=== PATIENT | male | born 1950 | race Caucasian/White ===

== ENCOUNTER 2017-03-12 14:39 | Inpatient (IN) ==
[2017-03-12] MEDS ORDERED: *HR* FentaNYL (PF) 250 MCG/5 ML VIAL ONE (15:11)
[2017-03-12] MEDS ORDERED: Nitroglycerin 1,000 MCG/10 ML VIAL IV ONE ×2 (15:11→16:04)
[2017-03-12] MEDS ORDERED: Heparin 1,000 UNITS/500 mL NS 500 ML ONE (15:11)
[2017-03-12] MEDS ORDERED: *HR* Midazolam HCl 5 MG/5 ML VIAL IVP ONE (15:11)
[2017-03-12] MEDS ORDERED: 0.9 % Sodium Chloride 1,000 ML ONE ×2 (15:11→15:37)
[2017-03-12] MEDS ORDERED: *HR* Heparin 10,000 UNIT/10 ML VIAL ONE (15:11)
[2017-03-12] MEDS ORDERED: *HR* Bivalirudin 250 MG VIAL IVC ONE (15:12)
[2017-03-12] MEDS ORDERED: Amiodarone Premix 0 MG/0 ML BAG IVPB ONE (15:47)
[2017-03-12] MEDS ORDERED: Ondansetron 4 MG/2 ML VIAL IVP PRN (16:35)
[2017-03-12] MEDS ORDERED: Nitroglycerin 0.4 MG TAB.SUBL SL PRN (16:35)
--- NOTE | 2017-03-12 16:41 | Cardiology History & Physical ---
Date of Encounter: 03/12/17 Time of Encounter: 16:40 Assessment and Plan (1) ST elevation myocardial infarction (STEMI) Current Visit: No Status: Acute Per Cardiology: Presented with inferior posterior STEMI. Troponin negative at [facility]. Taken from [facility] to [facility] for emergent revascularization by Dr. Augustina Mckenzie. Patient underwent drug-eluting stent to distal RCA. Currently chest pain-free. Has remaining LAD 70% stenosis with recommendations for staged PCI in outpatient setting. Echo pending. Anticipated LOS 2-3 days. Qualifiers: Involved coronary artery: right coronary artery Qualified Code(s): I21.11 - ST elevation (STEMI) myocardial infarction involving right coronary artery History of Present Illness Chief complaint: CP HPI: Mr. Lr is a 67 year old male with a relevant past history of hyperlipidemia, hypertension, and mitral valve repair in 2004 at [facility]. Reports dad of a myocardial infarction. Denies any smoking history. Denies any known history of CAD. Patient reports he was riding his bike developed midsternal epigastric chest pressure and drove himself to [facility]. He reports he normally bikes about 120 miles per week until about one to 2 months ago. She reports significant decline in his energy levels with increased fatigue and decreased exercise tolerance. He reports biked about 60 miles last week. Biked about 15 miles today before CP started. He denies any short of breath or dyspnea on exertion. Denies any palpitations, dizziness, syncope. Denies any bleeding or blood loss. Reports lisinopril medication recently discontinued due to dry cough by PCP. Past Med Surg Social Fam HX - Past Medical History Source: patient, old records reviewed Medical history: cancer, hyperlipidemia, hypertension, valvular heart disease ( Mitral valve repair at [facility] in 2004) - Social History Smoking Status: Never smoker Smokeless Tobacco Status: No Alcohol use: occasionally Drug use: none Medications and Allergies Aspirin 81 mg PO DAILY 03/12/17 [History] Doxepin HCl 100 mg PO HS 03/12/17 [History] LORazepam [Ativan] 0.5 mg PO TID PRN 03/12/17 [History] Allergies No Known Allergies Allergy (Verified 03/12/17 14:11) All Systems Review: A 10-system review of systems was performed and is negative for pertinent findings except as documented above in the HPI. - Constitutional Constitutional: fatigue - Cardiovascular Cardiovascular: as per HPI, chest pain with exertion Physical Examination Pending General: Conversant, No Apparent Distress HEENT: Atraumatic, Normocephaly, Mucus Membranes Moist Neck: No JVD, Normal carotid pulses Cardiac: Reg Rate and Rhythm, Normal S1 and S2, No Murmur Lungs: Normal Breath Sounds, No Wheeze, Rales, Rhonchi Neuro: Alert and responsive, No focal deficits noted Abdomen: Soft, Non-Tender Skin: No rashes noted on visualized skin Musculoskeletal: No Chest Wall Tenderness Extremities: No Clubbing, No Cyanosis, No Edema, Normal Pulses Results Laboratory Tests 02/05/17 03/06/17 03/12/17 10:33 13:27 14:45 WBC 7.4 Hgb 14.5 Hct 40.9 Plt Count 230 INR Potassium Creatinine Est GFR (Non-Af Amer) AST 22 ALT 19 Troponin I LDL Cholesterol, Calc 86 TSH 1.802 03/12/17 03/12/17 03/12/17 14:45 14:45 14:45 WBC Hgb Hct Plt Count INR 1.1 Potassium 3.9 Creatinine 1.00 Est GFR (Non-Af Amer) > 60 AST ALT Troponin I 0.01 LDL Cholesterol, Calc TSH - Imaging and Cardiology Cardiac cath: other (perfromed per Dr. Augustina Mckenzie)
--- NOTE | 2017-03-12 17:02 | Invasive Diagnostic Lab Proc ---
Name: Iban Lr Date of Study: 03/12/2017 Date: 1950 Ht: 68.9in Medical Record#: [id number] Age: 67 Wt: 175.05lb Gender: Male BSA: 1.95 Order #: [id number] BMI: 25.93 Physicians Procedure Physician: Vivi Mckenzie MD, [facility] Referring MD: Referring MD: Staff Name Position Time In Lex Hare RN Line Installer Repairer 03:22 PM Denia Jeong RN Monitor 03:23 PM Malika Tracy RT Scrub 03:23 PM Macarena Yousif RT (R) 03:23 PM Indications Indication STEMI Procedures Performed Procedure PRQ CARD REVASC NH 1 VSL L HRT ARTERY/VENTRICLE ANGIO Pre-Procedure Checklist Informed consent is complete signed and on chart. H\\T\\P is on chart. ID band is on and ID verified with patient. Patient NPO for procedure The procedure was described for the patient and questions were answered. Blood Pressure: 144/103 ECG is on chart. Rhythm: Sinus Tachycardia Plan of Care Patient will tolerate the procedure without complications. Adequate level of comfort will be maintained. Hemodynamics will remain stable Patient will recover from procedure without complications. Respiratory function will be maintained. Cardiac rhythm will remain stable. Patient temperature will be maintained. Patient and/or family have verbalized understanding of the procedure. Patient Education Chief Complaint/Reason for Test: Cardiac Cath Developmental Category: Geriatric (65+ years) Developmentally Appropriate for Age: Yes Learning Barriers: None Education Needs: Procedure Education Method: Verbal Information Taught: Cardiac Cath Educational Evaluation: Able to repeat information Intravenous Access Time IV Size Location DC'd Fluid/Drip Rate Units RN 03:15 PM 18g 1 1/4" Patent On Arrival Rt Antecubital 0.9NaCl 25 ml/hr Lex Hare RN 03:15 PM 18g 1 1/4" Patent On Arrival Lt Antecubital 0.9NaCl 25 ml/hr Lex Hare RN Allergies No Known Allergies Vital Signs Time BP (mmHg) HR (bpm) O2 Sat. RR (bpm) LOC 03:24 PM 144 / 103 115 97 % 15 5 = Fully awake and oriented or at pre-proc level 03:24 PM / % 4 = Oriented but drowsy 03:39 PM / % 4 = Oriented but drowsy 03:55 PM / % 4 = Oriented but drowsy 04:10 PM / % 5 = Fully awake and oriented or at pre-proc level 03:57 PM 139 / 89 83 93 % 3 04:02 PM 127 / 82 89 94 % 2 04:07 PM 134 / 99 71 97 % 7 04:12 PM 124 / 76 82 94 % 3 04:17 PM 127 / 88 67 96 % 4 03:17 PM 144 / 103 115 97 % 15 03:22 PM 157 / 92 74 94 % 15 03:27 PM 155 / 108 78 93 % 21 03:32 PM 156 / 100 76 93 % 17 03:37 PM 155 / 106 71 95 % 16 03:42 PM 143 / 96 83 95 % 15 03:47 PM 136 / 92 88 95 % 20 03:52 PM 128 / 74 74 92 % 10 Procedural Medications Time Medication Dose Units Method Given By 03:23 PM Oxygen 2 L/min nasal cannula Lex Hare RN 03:23 PM Versed 2 mg Intravenous Lex Hare RN 03:24 PM Fentanyl 50 mcg Intravenous Lex Hare RN 03:24 PM Lidocaine 2% 17 ml Subcutaneous Vivi Mckenzie MD, FACC 03:34 PM Heparin 3000 units Intravenous Lex Hare RN 03:46 PM Nitroglycerin 200 mcg Intracoronary Vivi Mckenzie MD, FACC 03:49 PM Nitroglycerin 200 mcg Intracoronary Vivi Mckenzie MD, FACC 03:49 PM Versed 1 mg Intravenous Lex Hare RN 03:49 PM Fentanyl 25 mcg Intravenous Lex Hare RN 03:57 PM Nitroglycerin 200 mcg Intracshahidary Vivi Mckenzie MD, FACC 04:09 PM Nitroglycerin 200 mcg Intracoronary Vivi Mckenzie MD, FACC 04:10 PM Nitroglycerin 200 mcg Intracoronary Vivi Mckenzie MD, FACC 04:15 PM Reopro Bolus: 9.9 ml Intravenous Lex Hare RN ASA Classification: Emergent Procedure: ASA score is assumed Komal Score Preprocedure Postprocedure Activity 2- Moves 4 extremities sustained head lift Activity 2- Moves 4 extremities sustained head lift Circulation 2- SBP +/= 20 points of pre-anesthetic level Circulation 2- SBP +/= 20 points of pre-anesthetic level Consciousness 2- Awake and alert oriented x 3 Consciousness 2- Awake and alert oriented x 3 O2 Saturation 2- Able to maintain O2 satruation of 92% on room air O2 Saturation 2- Able to maintain O2 satruation of 92% on room air Respiratory 2- Able to deep breathe and cough well Respiratory 2- Able to deep breathe and cough well Total Score 10 Total Score 10 Contrast Agent: Isovue Diagnostic Contrast: 132 ml Total Contrast: 132 ml Fluoro Dose: 1604 mGy Activated Clotting Time Time Seconds to Clot 03:34 PM 190 03:50 PM 308 04:12 PM 247 Procedure Log Time Note Enter By 03:13 PM Physician arrived 15:13 [facility] 03:13 PM Meet and tere completed [facility] 03:13 PM Sign in performed according to hospital policy. [facility] 03:13 PM Procedure start 15:13 [facility] 03:13 PM Pt arrived to propagator laborer 2 at 15:13 [facility] 03:17 PM CathStat 03:17 PM Case Start 03:17 PM Vitals capture started with the following parameters, Patient=Adult, Interval=5 min, Initial Lfylosvf=933 mmHg, Deflation Rate=5 mmHg, Cuff placed on Right Arm 03:17 PM DD=148 bpm, EXBZ=544/103 mmhg, SpO2=97.0 %, Resp=15 B/min, Comment=Afib/flutter 03:22 PM HR=74 bpm, LMHO=320/92 mmhg, SpO2=94.0 %, Resp=15 B/min, Comment=Afib/flutter 03:23 PM Lex Hare RN Position: Line Installer Repairer [facility]: 15:22 [facility] PM Denia Jeong RN Position: Monitor [facility] in: 15:23 [facility] 03:23 PM Malika Tracy RT Position: Scrub Time in: 15:23 [facility] 03:23 PM Patient charges- Angio tray pack, Navilyst 3mm J, Pulse Oximetry and ACIST tubing and transducer [facility] 03:23 PM Case Delayed No [facility] 03:23 PM Hair removed from procedure site in procedure lab using clippers. Bilateral groin prepped with Chloraprep by Macarena Yousif RT (R), safety strap applied then patient was draped. Skin intact. [facility] 03:23 PM Macarena Yousif RT (R) Position: Time in: 15:23 [facility] PM Time: 15:23 Oxygen on at 2 L/min per nasal cannula by Lex Hare RN 03: PM Time: 15:23 Versed 2 mg Intravenous Given by Lex Hare RN 03: PM Time: 15:24 Fentanyl 50 mcg Intravenous Given by Lex Hare RN : PM Pressure channel 1 zeroed. 03:24 PM Time: 15:24 Patient comfortable and pain free: Yes [facility] 03: PM Time: 15:24LOC: 5 = Fully awake and oriented or at pre-proc level [facility] 03: PM Time out performed according to hospital policy [facility] 03: PM Time: 15:24 17 ml Lidocaine 2% to right groin Subcutaneous Given by Vivi Mckenzie MD, [facility] 03:25 PM Access obtained by percutaneous puncture. 6Fr 10cm Terumo [place] sheath placed in right Femoral artery. [id number] [facility] 03:25 PM 5Fr FL 4 catheter inserted over the wire [facility] 03:25 PM LCA angiography performed in multiple views. [facility] 03:25 PM Recorded Pressure: Ao, HR=77, Condition=Condition 1 (Aorta) Ao 139/98/119 03:26 PM Catheter removed [facility] 03:27 PM HR=78 bpm, KQSO=017/108 mmhg, SpO2=93.0 %, Resp=21 B/min, Comment=Afib/flutter 03:27 PM PCI Status Emergency [facility] 03:28 PM 6Fr JR 4 Kelford Bright-Tip guide catheter was used to cannulate the PCI vessel successfully. reused? No [facility] 03:32 PM Recorded Pressure: Ao, HR=73, Condition=Condition 1 (Aorta) Ao 154/92/122 03:32 PM HR=76 bpm, XGLE=259/100 mmhg, SpO2=93.0 %, Resp=17 B/min, Comment=Afib/flutter 03:33 PM RCA angiography performed in multiple views. [facility] 03:34 PM Guide catheter removed intact. [facility] 03:34 PM At 15:34 the ACT was 190 seconds. [facility] 03:34 PM Time: 15:34 Heparin 3000 units Intravenous Given by Lex Hare RN lp[facility]ana 03:35 PM 6Fr IM Runway guide catheter was used to cannulate the PCI vessel successfully. reused? No [facility] 03:35 PM .014 Prowater 180cm guide wire across target lesion- successful. reused? No [facility] 03:35 PM Inflation device was opened. [facility] 03:36 PM 2.5 mm x 15 mm Emerge Monorail balloon across target lesion- successful. reused? No [facility] 03:36 PM Recorded Pressure: Ao, HR=77, Condition=Condition 1 (Aorta) Ao 157/99/126 03:37 PM Balloon inflated @ 10 ga for 20 seconds [facility] 03:37 PM HR=71 bpm, NMSK=273/106 mmhg, SpO2=95.0 %, Resp=16 B/min, Comment=Afib/flutter 03:38 PM Recorded Pressure: Ao, HR=95, Condition=Condition 1 (Aorta) Ao 134/103/119 03:39 PM Time: 15:24LOC: 4 = Oriented but drowsy [facility] 03:40 PM Time: 15:24 Patient comfortable and pain free: Yes [facility] 03:40 PM .014 PT Graphix 182cm guide wire across target lesion- successful. reused? No [facility] 03:41 PM Recorded Pressure: Ao, HR=74, Condition=Condition 1 (Aorta) Ao 124/79/99 03:41 PM 2.5 x 15 balloon reinserted over the PT Graphix wire [facility] 03:42 PM Balloon inflated @ 10 ga for 20 seconds [facility] 03:42 PM HR=83 bpm, ZCCK=674/96 mmhg, SpO2=95.0 %, Resp=15 B/min, Comment=Afib/flutter 03:42 PM Balloon inflated @ 10 ga for 20 seconds [facility] 03:43 PM Balloon inflated @ 6 ga for 24 seconds [facility] 03:44 PM Recorded Pressure: Ao, HR=71, Condition=Condition 1 (Aorta) Ao 137/92/116 03:44 PM Balloon inflated @ 6 ga for 20 seconds [facility] 03:45 PM Balloon catheter removed intact. [facility] 03:45 PM Recorded Pressure: Ao, CU=982, Condition=Condition 1 (Aorta) Ao 144/100/122 03:46 PM Time: 15:46 Nitroglycerin 200 mcg Intracoronary Given by Vivi Mckenzie MD, [facility] 03:46 PM Reperfusion rhythms noted [facility] 03:47 PM HR=88 bpm, BQVR=406/92 mmhg, SpO2=95.0 %, Resp=20 B/min, Comment=reperfusion rhythm 03:49 PM Time: 15:49 Nitroglycerin 200 mcg Intracoronary Given by Vivi Mckenzie MD, [facility] 03:49 PM Time: 15:49 Versed 1 mg Intravenous Given by Lex Hare RN [facility] 03:49 PM Time: 15:49 Fentanyl 25 mcg Intravenous Given by Lex Hare RN [facility] 03:50 PM Recorded Pressure: Ao, HR=72, Condition=Condition 1 (Aorta) Ao 125/81/101 03:50 PM At 15:50 the ACT was 308 seconds. [facility] 03:52 PM HR=74 bpm, WRRM=947/74 mmhg, SpO2=92.0 %, Resp=10 B/min, Comment=Afib/flutter 03:55 PM Time: 15:40 Patient comfortable and pain free: Yes [facility] 03:55 PM Time: 15:39LOC: 4 = Oriented but drowsy [facility] 03:57 PM HR=83 bpm, YODE=831/89 mmhg, SpO2=93.0 %, Resp=3 B/min, Comment=Afib/flutter 03:58 PM Time: 15:57 Nitroglycerin 200 mcg Intracoronary Given by Vivi Mckenzie MD, [facility] 03:58 PM Recorded Pressure: Ao, HR=90, Condition=Condition 1 (Aorta) Ao 115/79/97 04:01 PM Recorded Pressure: Ao, HR=72, Condition=Condition 1 (Aorta) Ao 125/83/102 04:02 PM HR=89 bpm, KVSA=532/82 mmhg, SpO2=94.0 %, Resp=2 B/min, Comment=Afib/flutter 04:03 PM 3.0mm x 38mm Synergy drug-eluting stent across target lesion- successful [facility][id number] [facility] 04:06 PM Stent deployed @ 12 ga for 30 seconds [facility] 04:07 PM Stent balloon reinflated @ 16 ga for 20 seconds [facility] 04:07 PM HR=71 bpm, UOAQ=459/99 mmhg, SpO2=97.0 %, Resp=7 B/min, Comment=Afib/flutter 04:08 PM Guide wire removed intact. [facility] 04:08 PM Stent delivery system removed intact. [facility] 04:09 PM Time: 16:09 Nitroglycerin 200 mcg Intracoronary Given by Vivi Mckenzie MD, [facility] 04:09 PM Recorded Pressure: Ao, HR=82, Condition=Condition 1 (Aorta) Ao 147/99/120 04:10 PM Time: 15:55LOC: 4 = Oriented but drowsy [facility] 04:10 PM Time: 15:55 Patient comfortable and pain free: Yes [facility] 04:10 PM Time: 16:10 Nitroglycerin 200 mcg Intracoronary Given by Vivi Mckenzie MD, [facility] 04:12 PM At 16:12 the ACT was 247 seconds. [facility] 04:12 PM HR=82 bpm, RYJX=570/76 mmhg, SpO2=94.0 %, Resp=3 B/min, Comment=Afib/flutter 04:12 PM Guide wire removed intact. [facility] 04:13 PM Guide catheter removed intact. [facility] 04:13 PM 5Fr Pigtail catheter inserted over the wire [facility] 04:13 PM Catheter selectively placed in left ventricle [facility] 04:13 PM Pressure channel 1 zeroed. 04:14 PM Recorded Pressure: LV, HR=73, Condition=Condition 1 (Left Ventricle) LV 100/14/13 04:14 PM Bolus angiogram of left Ventricle complete: 8 ml/sec for a total of 24 mls [facility] 04:14 PM Recorded Pressure: LV, Ao, HR=75, Condition=Condition 1 (Left Ventricle) LV 101/18/25, (Aorta) Ao 104/74/90 04:15 PM Catheter removed [facility] 04:15 PM Time: 16:15 Reopro Bolus: 9.9 ml Intravenous Given by Lex Hare RN Edward pump [facility] 04:15 PM Bolus angiogram of right Femoral complete: 4 ml/sec for a total of 7 mls [facility] 04:17 PM HR=67 bpm, GXKR=944/88 mmhg, SpO2=96.0 %, Resp=4 B/min, Comment=Afib/flutter 04:18 PM Procedure completed at 16:18 [facility] 04:18 PM Sign out completed: Radiation Dose 1604.19 mGy Fluoro Time: 12.5 Isovue 370 - 200ml contrast 132 ml given by Vivi Mckenzie MD, [facility]. Complications: NoneCardiac Rehab Consult needed: YesConfirmed administered medications: Yes [facility] 04:22 PM Isovue 370 - 200ml,1 Bottle(s) used. [facility] 04:22 PM Sheath left in place to be pulled on floor/holding area [facility] 04:22 PM Post ECG Atrial Fib/Flutter [facility] 04:23 PM Post Blood Pressure 139/89 [facility] 04:23 PM 16:23 Post Pulses Bilateral DP \\T\\ PT 2+ [facility] 04:23 PM Information taught Cardiac Cath and PCI [facility] 04:24 PM Education needs Procedure, Plan of Care, and Safe \\T\\ Effective Use of Medications [facility] 04:24 PM Learning barriers :None [facility] 04:24 PM Education Methods Verbal [facility] 04:24 PM Education evaluation Able to repeat information [facility] 04:24 PM Site status No bleeding/hematoma - Rt Groin as reported by Malika Tracy RT at 16:24 [facility] 04:24 PM Opsite applied [facility] 04:25 PM Time: 16:10 Patient comfortable and pain free: Yes [facility] 04:25 PM Time: 16:10LOC: 5 = Fully awake and oriented or at pre-proc level [facility] Complications Complication None Hemodynamics Pressures Site Systolic/A Wave Diastolic/V Wave Mean AO 139 98 119 AO 154 92 122 AO 157 99 126 AO 134 103 119 AO 124 79 99 AO 137 92 116 AO 144 100 122 AO 125 81 101 AO 115 79 97 AO 125 83 102 AO 147 99 120 LV 100 14 13 LV 101 18 25 AO 104 74 90 Post Procedure Information Blood Pressure: 139/89 mmHg Rhythm: Atrial Fib/Flutter Site Checks Time Location Status Staff Sheath In? Note 04:24 PM Rt Groin No bleeding/hematoma Malika Tracy RT Pulses Time Site Pre-Procedure Post-Procedure Note 03/12/2017 3:15:00 PM Bilateral DP \\T\\ PT 2+ 03/12/2017 3:15:00 PM Bilateral radial 2+ 4:23:00 PM Bilateral DP \\T\\ PT 2+ Updated by Denia Jeong RN on 03/12/2017 4:53:35 PM electronically signed on 03/12/2017 4:54:34 PM with status of Final
[2017-03-12 17:41] LABS: INR 1.2; Prothrombin Time 13.4 Seconds (9.4-12.1)
[2017-03-12 17:44] LABS: Activated Partial Thrombo Time 85.2 Seconds (26.0-36.0)
[2017-03-12] MEDS ORDERED: *HR* Morphine 2 MG/ML SYRINGE IVP PRN (18:07)
[2017-03-12] MEDS ORDERED: *HR* OxyCODONE/APAP 5/325 TABLET PO PRN (18:07)
--- NOTE | 2017-03-12 18:50 | Invasive Diagnostic Lab ---
Name: Iban Lr Date of Study: 03/12/2017 Date: 1950 Ht: 175.0 cm /68.9 in Medical Record#: [id number] Age: 67 Wt: 79.4 kg / 175.05 lb Account/Order#: [id number] Gender: Male BSA: 1.95 Order #: [id number] Fluoro Dose: 1604 mGy BMI: 25.93 Procedure Physician: Vivi Mckenzie MD, [facility] Referring MD: Referring MD: Procedures Performed: PCI of Acute [place] LEFT HEART CATH Indications: STEMI Impressions: Double vessel coronary artery disease. The left ventricle is normal and has normal contractility EF 50% Patient had successful PTCA/Drug-Eluting Stent placement in the distal RCA. Recommendations: Dual antiplatelet therapy. Optimal medical therapy of patient's disease. Aggressive risk factor modification. Staged PCI of LAD. History/Risk Factors: Mitral valve repair CA Family History of CAD Previous Valvular Surgery Procedure Access obtained in the right Femoral artery by percutaneous puncture Patient had successful PTCA/Drug-Eluting Stent placement in the distal RCA. Complications: None Contrast: Isovue 132ml Hemodynamics: Pressures Site Systolic/ A Wave Diastolic/ V Wave End Diastolic/ Mean HR AO 139 98 119 77 AO 154 92 122 73 AO 157 99 126 77 AO 134 103 119 95 AO 124 79 99 74 AO 137 92 116 71 AO 144 100 122 104 AO 125 81 101 72 AO 115 79 97 90 AO 125 83 102 72 AO 147 99 120 82 LV 100 14 13 73 LV 101 18 25 67 AO 104 74 90 79 LV Ventriculography Ejection Method: LV Gram Ejection Fraction: 50% Wall Motion: MARTIN Anterobasal Normal Anterolateral Normal Apical: Normal Inferoapical Akinesis Inferobasal Akinesis Coronary Dominance: Co-dominant Lesion Findings/Interventions * Left Main Coronary Artery There is a 15% stenosis in the LMCA. * Left Anterior Descending There is a 30% stenosis in the Proximal LAD. There is a 70% stenosis in the Mid LAD. * Circumflex There is a 30% stenosis in the Proximal Circumflex. There is a 30% stenosis in the Mid Circumflex. There is a 30% stenosis in the Distal Circumflex. There is a 15% stenosis in the 1st Marginal. * Right Coronary Artery There is a 15% stenosis in the Proximal RCA. There is a 15% stenosis in the Mid RCA. There is a 38 mm long, 100% stenosis in the Distal RCA. The lesion has a RADHA flow of 0, has thrombus present, and is a bifurcation lesion. An intervention was performed on the Distal RCA with a final stenosis of 0%. There were no lesion complications. The final RADHA flow was 3. Interventional Device(s) Vessel Segment Type Name Diameter (mm) Length (mm) Distal RCA Drug Eluting Stent Synergy 3 38 Distal RCA Balloon Emerge Monorail 2.5 15 Updated by Vivi Mckenzie MD, FACC on 03/12/2017 6:41:52 PM Vivi Mckenzie MD, FACC electronically signed on 03/12/2017 6:43:34 PM with status of Final
[2017-03-12] MEDS ORDERED: *HR* Heparin 5,000 UNIT/ML VIAL IVP ONE (22:45)
[2017-03-12] MEDS ORDERED: *HR* Heparin 5,000 UNIT/ML VIAL IVP PRN ×2 (22:45)
[2017-03-12] MEDS ORDERED: Heparin 25,000 UNIT/500 ML D5W 25,000 UNIT/500 ML MLS IVC SCH ×2 (22:45)
[2017-03-13 02:00] LABS: Basophils % 0.2 %; Eosinophils # 0.1 K/mcL (0.0-0.6); Eosinophils % 0.4 %; Hematocrit 39.1 % (37.5-50.1); Hemoglobin 13.6 g/dL (12.9-16.9); Immature Granulocytes % 0.4 % (0-4); Lymphocytes # 0.9 K/mcL (0.6-4.6); Mean Corpuscular HGB Conc 34.8 g/dL (31.6-35.5); Mean Corpuscular Hemoglobin 33.8 pg (28.0-33.3); Mean Corpuscular Volume 97.3 fL (83.0-100.0); Mean Platelet Volume 10.3 fL (9.4-12.4); Monocytes % 7.6 %; Neutrophils # 10.6 K/mcL (1.6-8.9); Platelet Count 207 K/mcL (140-400); Red Blood Count 4.02 M/mcL (4.19-5.50); Red Cell Distribution Width 12.6 % (11.5-14.5); Segmented Neutrophils % 84.4 %
[2017-03-13 02:05] LABS: Alanine Aminotransferase 25 Units/L (0-55); Albumin 3.5 g/dL (3.5-5.0); Albumin/Globulin Ratio 1.3 (1.1-2.2); Alkaline Phosphatase 56 Units/L (38-126); Aspartate Amino Transferase 128 Units/L (5-34); BUN/Creatinine Ratio 16 (6-26); Bilirubin,Total 1.9 mg/dL (0.2-1.2); Blood Urea Nitrogen 13 mg/dL (8-26); Calcium 8.4 mg/dL (8.6-10.8); Carbon Dioxide 22 mEq/L (19-29); Chloride 103 mEq/L (98-109); Chol/HDL Ratio 3.2 (0-4.9); Cholesterol 142 mg/dL (< 200); Globulin 2.6 g/dL (2.4-3.5); Glucose 116 mg/dL (70-99); HDL Cholesterol 45 mg/dL (40-59); LDL Cholesterol,Calculated 76 mg/dL (0-99); Osmolality,Calculated 279 (280-300); Sodium 134 mEq/L (136-145); Total Protein 6.1 g/dL (6.0-8.3); Triglycerides 104 mg/dL (< 150); eGFR For African Americans > 60 (> 60); eGFR For Non-African Americans > 60 (> 60)
[2017-03-13 08:36] LABS: Activated Partial Thrombo Time 125.8 Seconds (26.0-36.0)
[2017-03-13 08:43] LABS: Heparin anti-factor XA UFH 0.86 IU/mL (0.30-0.70)
[2017-03-13] MEDS ORDERED: Aspirin 81 MG TAB.CHEW PO SCH (09:00)
[2017-03-13] MEDS ORDERED: Heparin 25,000 UNIT/500 ML D5W 25,000 UNIT/500 ML MLS IVC SCH (10:22)
[2017-03-13] MEDS ORDERED: Nitroglycerin 0.4 MG TAB.SUBL SL PRN (10:22)
[2017-03-13] MEDS ORDERED: *HR* Morphine 2 MG/ML SYRINGE IVP PRN (10:22)
[2017-03-13] MEDS ORDERED: *HR* OxyCODONE/APAP 5/325 TABLET PO PRN (10:22)
[2017-03-13] MEDS ORDERED: Ondansetron 4 MG/2 ML VIAL IVP PRN (10:22)
[2017-03-13] MEDS ORDERED: *HR* Heparin 5,000 UNIT/ML VIAL IVP PRN ×2 (10:22)
--- NOTE | 2017-03-13 12:45 | Cardiology Progress Note ---
Date of Encounter: 03/13/17 Time of Encounter: 09:45 Assessment and Plan (1) ST elevation myocardial infarction (STEMI) Current Visit: No Status: Acute 03/13/2017: Patient status post 1 day for emergent revascularization secondary to STEMI. Troponin today 35.92 but the patient is pain-free and doing well. Patient had no incidence of chest pain overnight. Echo shows an LVEF of 50% with mild regional left ventricular systolic dysfunction, right ventricle is mildly dilated with normal function and possibly some hypokinesis of the inferior wall. Plan is to continue patient on current medications and stepdown from ICU soon as bed is available. Qualifiers: Involved coronary artery: right coronary artery Qualified Code(s): I21.11 - ST elevation (STEMI) myocardial infarction involving right coronary artery Discussion w patient/family: The assessment and plan as outlined above was discussed with the patient and/or family members who expressed understanding and agreement. All questions were answered. Thank you for involving us in the care of your patient. Please call with any questions. Subjective Principal diagnosis: STEMI Interval history: Patient 67-year-old male status post one day for PCI secondary to STEMI. Patient reports no pain today. Patient states he is doing well and has no complaints. Patient is very conversant and a pleasure to talk to. Objective Vital Signs, Last 4 Hours Temp Pulse Resp BP Pulse Ox 03/13/17 11:17 97.8 F 03/13/17 10:15 56 03/13/17 10:00 59 16 103/60 98 03/13/17 09:00 55 18 109/68 96 General: Conversant, No Apparent Distress HEENT: Atraumatic, Normocephaly, Mucus Membranes Moist Neck: No JVD, Normal carotid pulses Cardiac: Reg Rate and Rhythm, Normal S1 and S2, No Murmur Lungs: Normal Breath Sounds, No Wheeze, Rales, Rhonchi Neuro: Alert and responsive, No focal deficits noted Abdomen: Soft, Non-Tender Skin: No rashes noted on visualized skin Musculoskeletal: No Chest Wall Tenderness Extremities: No Clubbing, No Cyanosis, No Edema, Normal Pulses Results 03/13/17 00:36 03/13/17 00:36 Lab Results 03/12/17 03/12/17 03/13/17 17:21 17:21 00:36 WBC 12.5 H D Hgb 13.6 Hct 39.1 Plt Count 207 INR 1.2 APTT 85.2 H D Sodium Potassium Chloride Carbon Dioxide BUN Creatinine Glucose Calcium Total Bilirubin AST ALT Alkaline Phosphatase Troponin I 5.77 H* 03/13/17 03/13/17 03/13/17 00:36 00:36 00:36 WBC Hgb Hct Plt Count INR APTT 27.3 D Sodium 134 L Potassium 4.0 Chloride 103 Carbon Dioxide 22 BUN 13 Creatinine 0.83 Glucose 116 H Calcium 8.4 L Total Bilirubin 1.9 H AST 128 H ALT 25 Alkaline Phosphatase 56 Troponin I 35.92 H* 03/13/17 07:58 WBC Hgb Hct Plt Count INR APTT 125.8 H* D Sodium Potassium Chloride Carbon Dioxide BUN Creatinine Glucose Calcium Total Bilirubin AST ALT Alkaline Phosphatase Troponin I - VTE Reasons for not Prescribing Prophylaxis: Not indicated-Anticoagulated or INR therapeutic Consult Discharge Plan - Plan Referrals: NO,PCP [Primary Care Provider] -
--- NOTE | 2017-03-13 15:31 | Electrocardiograph Report ---
[address] [place] [address] Test Date: 2017-03-12 Pat Name: Iban Lr Department: 109 Room: 2NE24 Gender: M Shipping Support: : 1950 Requested By: Vivi Mckenzie Order Number: [id number] Reading MD: Paddy Bishop MD Measurements Intervals [place] Rate: 64 P: [place]: 0 QRS: 14 QRSD: 104 T: 120 QT: 441 QTc: 450 Interpretive Statements ATRIAL FLUTTER WITH ABERRANT CONDUCTION OR VENTRICULAR PREMATURE COMPLEXES LEFT VENTRICULAR HYPERTROPHY INFERIOR MYOCARDIAL INFARCTION, OF INDETERMINATE AGE Electronically Signed On 03-13-2017 15:29:30 EDT by Paddy Bishop MD
--- NOTE | 2017-03-13 15:33 | Electrocardiograph Report ---
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
[2017-03-13] MEDS: *HR* Heparin 5,000 UNIT/ML VIAL SQ SCH (18:08)
--- NOTE | 2017-03-13 20:59 | Electrocardiograph Report ---
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
[2017-03-13] MEDS ORDERED: Simethicone 80 MG TAB.CHEW PO PRN (21:03)
[2017-03-14] MEDS: *HR* Heparin 5,000 UNIT/ML VIAL SQ SCH (05:55)
[2017-03-14 07:18] VITALS: BP 147/95
[2017-03-14 08:06] LABS: Basophils # 0.1 K/mcL (0.0-0.2); Basophils % 0.4 %; Eosinophils # 0.2 K/mcL (0.0-0.6); Eosinophils % 1.6 %; Hematocrit 46.1 % (37.5-50.1); Immature Granulocytes % 0.4 % (0-4); Lymphocytes # 1.7 K/mcL (0.6-4.6); Lymphocytes % 14.9 %; Mean Corpuscular HGB Conc 34.1 g/dL (31.6-35.5); Mean Corpuscular Hemoglobin 33.5 pg (28.0-33.3); Mean Corpuscular Volume 98.3 fL (83.0-100.0); Mean Platelet Volume 9.7 fL (9.4-12.4); Monocytes % 8.6 %; Neutrophils # 8.3 K/mcL (1.6-8.9); Platelet Count 240 K/mcL (140-400); Red Blood Count 4.69 M/mcL (4.19-5.50); Red Cell Distribution Width 12.9 % (11.5-14.5); Segmented Neutrophils % 74.1 %
[2017-03-14 08:08] LABS: Hemoglobin 15.7 g/dL (12.9-16.9)
[2017-03-14 08:19] LABS: BUN/Creatinine Ratio 12 (6-26); Blood Urea Nitrogen 12 mg/dL (8-26); Calcium 9.7 mg/dL (8.6-10.8); Carbon Dioxide 29 mEq/L (19-29); Chloride 103 mEq/L (98-109); Glucose 102 mg/dL (70-99); Osmolality,Calculated 288 (280-300); Potassium 4.4 mEq/L (3.5-4.5); Sodium 139 mEq/L (136-145); eGFR For African Americans > 60 (> 60); eGFR For Non-African Americans > 60 (> 60)
[2017-03-14] MEDS ORDERED: Aspirin 81 MG TAB.CHEW PO SCH (09:00)
--- NOTE | 2017-03-14 10:50 | Discharge Summary ---
Date of Encounter: 03/14/17 Time of Encounter: 10:48 - Discharge Diagnosis (1) ST elevation myocardial infarction (STEMI) Priority: Primary Status: Acute Qualifiers: Involved coronary artery: right coronary artery Qualified Code(s): I21.11 - ST elevation (STEMI) myocardial infarction involving right coronary artery (2) Atrial fibrillation Priority: Secondary Status: Acute Qualifiers: Atrial fibrillation type: unspecified Qualified Code(s): I48.91 - Unspecified atrial fibrillation (3) Hypertension Priority: Secondary Status: Acute Qualifiers: Hypertension type: essential hypertension Qualified Code(s): I10 - Essential (primary) hypertension - Discharge Medications Prescriptions: Nitroglycerin 0.4 mg SL Q5MIN PRN #25 tab.subl PRN Reason: Chest Pain Apixaban [Eliquis] 5 mg PO BID #60 tablet Atorvastatin [Lipitor] 80 mg PO HS #30 tablet Carvedilol [Coreg] 6.25 mg PO BIDWM #60 tablet Clopidogrel [Plavix] 75 mg PO DAILY #30 tablet Losartan [Cozaar] 25 mg PO DAILY #30 tablet Home Medications: Aspirin 81 mg PO DAILY 03/12/17 [History] Doxepin HCl 100 mg PO HS 03/12/17 [History] LORazepam [Ativan] 0.5 mg PO TID PRN 03/12/17 [History] Apixaban [Eliquis] 5 mg PO BID #60 tablet 03/14/17 [Rx] Atorvastatin [Lipitor] 80 mg PO HS #30 tablet 03/14/17 [Rx] Carvedilol [Coreg] 6.25 mg PO BIDWM #60 tablet 03/14/17 [Rx] Clopidogrel [Plavix] 75 mg PO DAILY #30 tablet 03/14/17 [Rx] Losartan [Cozaar] 25 mg PO DAILY #30 tablet 03/14/17 [Rx] Nitroglycerin 0.4 mg SL Q5MIN PRN #25 tab.subl 03/14/17 [Rx] Allergies/Adverse Reactions: Allergies No Known Allergies Allergy (Verified 03/12/17 14:11) Procedures/tests Complete & Pending: Procedures Performed prior 72 hours Category Date Time Status ECG 12 lead ECG [ECG] Routine Y 03/12/17 16:35 Completed ECG 12 lead ECG [ECG] Routine Y 03/13/17 07:00 Completed ECG 12 lead ECG [ECG] Stat Y 03/12/17 16:35 Completed EKG [ECG 12 lead ECG] [ECG] Stat Y 03/14/17 07:47 Ordered EV echocardiogram Routine Y 03/13/17 16:35 Completed Date of admission: 03/12/17 16:12 Primary care physician: PCP NO Consults: 03/12/17 16:35 Consult to Cardiac Rehabilitation-Phase1 [CONS] Routine Comment: Reason for Consult: AMI Call Completed: Yes Consult to Nurse Navigator [CONS] Routine Comment: Discharging clinician: Ashish Mohamud Anticipated date of discharge: 03/14/17 - Patient Status Disposition: Home, Self-Care Condition: Good Functional capacity at discharge: independent ambulation Overall status at discharge: patient is progressing back to baseline - Discharge Instructions Follow Up With: Tim Quick Jr, MD [Partnered Physician] - 03/21/17 1:00 pm Forms: ED Satisfaction Letter Additional Instructions: RISK FACTORS: STOP SMOKING: If you smoke, STOP. Smoking or tobacco use significantly increases your risk of heart disease because nicotine causes the arteries to narrow or constrict. It also causes fats to stick to the artery. Your chances of having a heart attack are greatly increased if you continue to smoke. For more information, call the education line for smoking cessation 6-816-YSFIEWZ EAT A LOW FAT/CHOLESTEROL/SODIUM DIET: This diet may help reduce your chances of having a heart attack. LIFTING: Avoid lifting anything more than 10 pounds for 5-7 days Prior to straining, laughing, sneezing and/or coughing, apply manual pressure directly over insertion site. ACTIVITY: You may walk or climb stairs as tolerated You can resume sexual activity as tolerated In general, you are encouraged to engage in a minimum of 30 minutes or more of moderate intensity physical activity, such as brisk walking, daily or at least 3 -4 times weekly BATHING Do not submerge the site into water (bath tub, hot tub, swimming pool) for 1 week. This can be a source for infection into the blood stream. You may shower after 24 hours SITE CARE: After 24 hours, you may remove the dressing and leave the site open to air. Keep the site clean and dry. Clean gently and pat dry. You can expect bruising and tenderness that gradually resolve within a week or two. Return to work as instructed per your physician Resume driving as instructed per physician Keep all scheduled follow up appointments Resume medications as instructed IMPORTANT: If prescribed a Platelet Aggregation Inhibitor such as, Plavix, Brilinta or Effient: Duration of therapy is minimum one year These medications are often used in combination with Aspirin in prevention of future heart attacks Never discontinue unless consult with your Legal Billing Specialist STROKE (CVA) Risk factors for a stroke are: Age, cigarette smoking, diabetes, excessive alcohol consumption, family history, high blood pressure, overweight, physical inactivity, prior stroke, heart attack, diagnosis of carotid artery stenosis or other artery disease. Warning signs: Sudden numbness or weakness of the face, arm or leg; especially on one side of the body, sudden confusion, trouble speaking or understanding, sudden trouble seeing in one or both eyes, sudden trouble walking, dizziness, loss of balance or coordination, sudden severe headache with no cause. Call 911 or go to the Emergency Room. CONGESTIVE HEART FAILURE: If you have been diagnosed with Congestive Heart Failure (CHF) and your symptoms return, make an appointment with your physician Weigh yourself daily. Notify your physician if you have a weight gain of two or more pounds in one day or five or more pounds in one week. If you experience any difficulty breathing, please call 911 BLEEDING: Although the risk of bleeding is minimal, it can happen. If you have any bleeding from the site, apply firm pressure above the puncture site for 10-15 minutes. If the bleeding does not stop, continue manual pressure and call 911 Contact your physician if: You develop a fever greater than 101 degrees Fahrenheit Your site becomes reddened or has any drainage You have an increase in pain or burning at the site or if a large knot forms at the site. If you experience chest pain, shortness of breath, dizziness, or extreme tiredness, stop the activity and rest. Please notify your physicians office if you experience any of these symptoms and they are not relieved by rest please call 911! - Diet and Activity Activity: increase activity as tolerated Diet: advance to your usual diet, low fat, low cholesterol, low salt diet - Hospital Course Hospital course: Mr. Lr is a 67 year old male who presented to [facility] ER with chest pain and was found to have an inferior AR troponin elevated up to 35.92. He was taken urgently to the cardiac catheterization lab with Dr. Vivi Mckenzie on 03/12/17 and received at PTCA and RON to his distal RCA (culprit). There was a 70% stenosis in the mLAD. Staged PCI in the out-patient setting to the mLAD was recommended. TTE showed EF 50% with mild regional wall variations. S/p mitral valve repair (2004). Mild central mitral regurgitation and borderline mitral stenosis noted. There was no complications from his procedure. His kidney function remained stable. His right groin access site is soft without hematoma. He denies recurrent chest pain. He was hypertensive on admission and losartan was started. During his stay he was noted to have rate controlled atrial fibrillation. Patient states he may have been told he had afib in the past. He was not on anticoagulation. CHADS VASc = 3. Eliquis was started. He will be on triple therapy. Indications, risk, benefits, and alternative therapy for anticoagulation discussed with patient. He is agreeable to eliquis. Prior authorization is required by his insurance and the cardiology office staff was notified. . A free thirty day card given. Importance of DAPT with asa and plavix reviewed and he voiced understanding. Activity restrictions reviewed with patient as described above. Cardiac tetsing: LHC: 15% stenosis in the LMCA. 30% stenosis in the Proximal LAD. 70% stenosis in the Mid LAD. 30% stenosis in the Proximal Circumflex. 30% stenosis in the mid circumflex. 30% stenosis in the Distal Circumflex. 15% stenosis in the 1st Marginal. 15% stenosis in the Proximal RCA. 15% stenosis in the Mid RCA. 38 mm long, 100% stenosis in the Distal RCA. The lesion has a RADHA flow of 0, has thrombus present, and is a bifurcation lesion. PTCA and RON placed with good results. Echo: EF 50%, mild regional systolic dysfunction. RV mildly dilated with inferior wall hypokenesis but regional variations were not well visualized. S/p mitral valve repair. Borderline presence of mitral stenosis (MG 3-5 mmHg). Mild central appearing mitral regurgitation with trivial aldair-valvular regurgitation , Mild TR. No pulmonary hypertension. - Time Spent with Patient Total time spent providing and/or coordinating discharge services: Physical Examination Vital Signs, Last 4 Hours Temp Pulse Resp BP Pulse Ox 03/14/17 07:13 97.2 F L 61 16 147/95 95 General: Conversant, No Apparent Distress HEENT: Atraumatic, Normocephaly, Mucus Membranes Moist Neck: No JVD, Normal carotid pulses Cardiac: Reg Rate and Rhythm, Normal S1 and S2, No Murmur Lungs: Normal Breath Sounds, No Wheeze, Rales, Rhonchi Neuro: Alert and responsive, No focal deficits noted Abdomen: Soft, Non-Tender Skin: No rashes noted on visualized skin Musculoskeletal: No Chest Wall Tenderness Extremities: No Clubbing, No Cyanosis, No Edema, Normal Pulses - VTE Reasons for not Prescribing Prophylaxis: Not indicated-Anticoagulated or INR therapeutic
[2017-03-14] MEDS ORDERED: APIXABAN 5 MG TABLET PO SCH (12:15)
--- NOTE | 2017-03-16 08:45 | Electrocardiograph Report ---
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
== END 2017-03-14 15:18 | disposition home or self-care (01) | DRG 247 ==
LOC: EMEROO 14:39 → ICNU 15:06 → 2NENU 03-13 15:26
PROVIDERS: ADMIT Internal Medicine Interventional Cardiology; ATTEND Internal Medicine Interventional Cardiology